=== PATIENT | male | born 1965 | race Caucasian/White ===

== ENCOUNTER 2019-06-24 17:37 | Emergency (ER) | payer MEDICAID, OTHER ==
[~2019-06-24] VITALS: Ht 172.7 cm; Wt 63.6 kg
[2019-06-24 17:58] LABS: BASOPHILS % (AUTO) 1 % (0-10); EOSINOPHILS # (AUTO) 0.1 10^3/uL (0.0-0.3); EOSINOPHILS % (AUTO) 2 % (0-10); HEMATOCRIT 43 % (40-54); HEMOGLOBIN 14.8 G/DL (13.3-17.7); LYMPHOCYTES # (AUTO) 0.9 X 10^3 (1.0-4.0); LYMPHOCYTES % (AUTO) 25 % (12-44); MEAN CORPUSCULAR HEMOGLOBIN 33 PG (25-34); MEAN CORPUSCULAR HGB CONC 35 G/DL (32-36); MEAN CORPUSCULAR VOLUME 95 FL (80-99); MEAN PLATELET VOLUME 8.3 FL (7.4-10.4); MONOCYTES # (AUTO) 0.6 X 10^3 (0.0-1.0); MONOCYTES % (AUTO) 15 % (0-12); NEUTROPHILS # (AUTO) 2.1 X 10^3 (1.8-7.8); NEUTROPHILS % (AUTO) 56 % (42-75); PLATELET COUNT 156 10^3/uL (130-400); RED CELL DISTRIBUTION WIDTH 11.8 % (10.0-14.5); WHITE BLOOD COUNT 3.7 10^3/uL (4.3-11.0)
[2019-06-24 18:18] LABS: ALANINE AMINOTRANSFERASE 88 U/L (0-55); ALBUMIN 4.5 GM/DL (3.2-4.5); ALKALINE PHOSPHATASE 48 U/L (40-136); BILIRUBIN,TOTAL 0.3 MG/DL (0.1-1.0); BUN/CREATININE RATIO 17; CALCIUM 9.2 MG/DL (8.5-10.1); CARBON DIOXIDE 23 MMOL/L (21-32); CHLORIDE 106 MMOL/L (98-107); CREATININE SERUM 0.82 MG/DL (0.60-1.30); GFR ESTIMATED > 60; GLUCOSE 85 MG/DL (70-105); POTASSIUM 3.8 MMOL/L (3.6-5.0); SODIUM 140 MMOL/L (135-145); TOTAL PROTEIN 7.5 GM/DL (6.4-8.2)
[2019-06-24] MEDS ORDERED: HOLD METFORMIN - RECEIVED CONTRAST 20 ML VIAL IV SCH (18:30)
[2019-06-24] MEDS ORDERED: NS 100 ML (IVPB) BAG IV ONE (18:30)
[2019-06-24] MEDS ORDERED: CATHETER FLUSH 10 ML SYR IV PRN (18:30)
[2019-06-24] MEDS ORDERED: IOHEXOL 350 MG/ML 100 ML (OMNIPAQUE 350) VIAL IV ONE (18:30)
--- NOTE | 2019-06-24 18:34 | ED Respiratory ---
General Chief Complaint: Respiratory Problems Stated Complaint: SOB Nursing Triage Note: AMB TO ROOM REPORTS FOR 1 WEEK HAS HAD CONGESTION WITH SOA. HAS HAD PMH OF CA OF THE VOCAL CORDS 2 YEARS AGO, . HAS HAD TRACH. Source: patient Exam Limitations: no limitations History of Present Illness Date Seen by Provider: Jun 24, 2019 Time Seen by Provider: 18:30 Initial Comments To ER with one week history of congestion and shortness of breath. History of some sort of throat cancer, he states it was of the vocal cords. Subsequently had a tracheostomy which is currently covered with a Band-Aid. Continues to smoke, has sensation that his cancer has returned. Timing/Duration: just prior to arrival Severity: moderate Modifying Factors: Improves With Coughing Associated Symptoms: cough Allergies and Home Medications Allergies Coded Allergies: morphine (Verified Allergy, Unknown, 06/24/19) Home Medications No Active Prescriptions or Reported Meds Patient Home Medication List Home Medication List Reviewed: Yes Review of Systems Review of Systems Constitutional: see HPI EENTM: see HPI Respiratory: see HPI, cough, short of breath Cardiovascular: no symptoms reported Genitourinary: no symptoms reported Musculoskeletal: no symptoms reported Skin: no symptoms reported Psychiatric/Neurological: No Symptoms Reported Hematologic/Lymphatic: No Symptoms Reported Past Cdlwclv-Mumzyn-Arwvtp Hx Patient Social History Alcohol Use: Occasionally Uses Recreational Drug Use: No Smoking Status: Current Someday Smoker Recent Foreign Travel: No Contact w/Someone Who Travel: No Recent Infectious Disease Expo: No Past Medical History Surgeries: Yes (FEEDING TUBE IN PAST. ) Gallbladder, Tracheostomy Respiratory: No Cardiac: No Neurological: No Genitourinary: No Musculoskeletal: No Endocrine: No HEENT: No Cancer: Yes (VOCAL CORD. ) Integumentary: No Physical Exam Vital Signs - First Documented 06/24/19 17:40 Temp 36.4 Pulse 107 Resp 18 B/P (MAP) 156/112 (127) Pulse Ox 97 O2 Delivery Room Air Capillary Refill : Less Than 3 Seconds Height: '" Weight: lbs. oz. kg; 21.00 BMI Method: General Appearance: WD/WN, no apparent distress Eyes: Bilateral Eye Normal Inspection, Bilateral Eye PERRL, Bilateral Eye EOMI HEENT: PERRL/EOMI, normal ENT inspection Neck: non-tender, full range of motion Respiratory: no respiratory distress, no accessory muscle use Gastrointestinal: normal bowel sounds, non tender, soft Extremities: normal range of motion, non-tender, normal inspection Neurologic/Psychiatric: alert, normal mood/affect, oriented x 3 Skin: normal color, warm/dry Progress/Results/Core Measures Suspected Sepsis Recent Fever Within 48 Hours: No Infection Criteria Present: Suspected New Infection New/Unexplained Altered Menta: No Sepsis Screen: No Definite Risk SIRS Temperature: Pulse: 107 Respiratory Rate: 18 Laboratory Tests 06/24/19 17:50: White Blood Count 3.7L Blood Pressure 156 /112 Mean: 127 Laboratory Tests 06/24/19 17:50: Creatinine 0.82, Platelet Count 156, Total Bilirubin 0.3 Results/Orders Lab Results Laboratory Tests Test 06/24/19 17:50 Range/Units White Blood Count 3.7 L 4.3-11.0 10^3/uL Red Blood Count 4.52 4.35-5.85 10^6/uL Hemoglobin 14.8 13.3-17.7 G/DL Hematocrit 43 40-54 % Mean Corpuscular Volume 95 80-99 FL Mean Corpuscular Hemoglobin 33 25-34 PG Mean Corpuscular Hemoglobin Concent 35 32-36 G/DL Red Cell Distribution Width 11.8 10.0-14.5 % Platelet Count 156 130-400 10^3/uL Mean Platelet Volume 8.3 7.4-10.4 FL Neutrophils (%) (Auto) 56 42-75 % Lymphocytes (%) (Auto) 25 12-44 % Monocytes (%) (Auto) 15 H 0-12 % Eosinophils (%) (Auto) 2 0-10 % Basophils (%) (Auto) 1 0-10 % Neutrophils # (Auto) 2.1 1.8-7.8 X 10^3 Lymphocytes # (Auto) 0.9 L 1.0-4.0 X 10^3 Monocytes # (Auto) 0.6 0.0-1.0 X 10^3 Eosinophils # (Auto) 0.1 0.0-0.3 10^3/uL Basophils # (Auto) 0.0 0.0-0.1 10^3/uL Sodium Level 140 135-145 MMOL/L Potassium Level 3.8 3.6-5.0 MMOL/L Chloride Level 106 98-107 MMOL/L Carbon Dioxide Level 23 21-32 MMOL/L Anion Gap 11 5-14 MMOL/L Blood Urea Nitrogen 14 7-18 MG/DL Creatinine 0.82 0.60-1.30 MG/DL Estimat Glomerular Filtration Rate > 60 BUN/Creatinine Ratio 17 Glucose Level 85 70-105 MG/DL Calcium Level 9.2 8.5-10.1 MG/DL Corrected Calcium 8.8 8.5-10.1 MG/DL Total Bilirubin 0.3 0.1-1.0 MG/DL Aspartate Amino Transf (AST/SGOT) 63 H 5-34 U/L Alanine Aminotransferase (ALT/SGPT) 88 H 0-55 U/L Alkaline Phosphatase 48 40-136 U/L B-Type Natriuretic Peptide 17.4 <100.0 PG/ML Total Protein 7.5 6.4-8.2 GM/DL Albumin 4.5 3.2-4.5 GM/DL Micro Results Microbiology 06/24/19 Influenza Types A,B Antigen (EMILY) - Final, Complete My Orders Orders - CELENA SPRINGER [employer] Influenza A And B Antigens (06/24/19 17:52) Chest Pa/Lat (2 View) (06/24/19 17:52) Cbc With Automated Diff (06/24/19 17:52) Comprehensive Metabolic Panel (06/24/19 17:52) BNP (06/24/19 17:52) Ed Iv/Invasive Line Start (06/24/19 17:52) Ct Neck (Soft Tissue) W (06/24/19 17:58) Iohexol Injection (Omnipaque 350 Mg/Ml 1 (06/24/19 18:30) Received Contrast (Hold Metformin- Contr (06/24/19 18:30) Sodium Chloride Flush (Catheter Flush Sy (06/24/19 18:30) Ns (Ivpb) (Sodium Chloride 0.9% Ivpb Bag (06/24/19 18:30) Medications Given in ED Current Medications Medications Dose Ordered Sig/Cristin Route Start Time Stop Time Status Last Admin Dose Admin Iohexol 100 ml ONCE ONCE IV 06/24/19 18:30 06/24/19 18:32 DC 06/24/19 18:30 75 ML Sodium Chloride 10 ml NEEDED PRN IV 06/24/19 18:30 06/24/19 18:30 10 ML Sodium Chloride 100 ml ONCE ONCE IV 06/24/19 18:30 06/24/19 18:32 DC 06/24/19 18:30 80 ML Vital Signs/I&O 06/24/19 17:40 Temp 36.4 Pulse 107 Resp 18 B/P (MAP) 156/112 (127) Pulse Ox 97 O2 Delivery Room Air Capillary Refill : Less Than 3 Seconds Blood Pressure Mean: 127 Diagnostic Imaging Plain Films/CT/US/NM/MRI: chest Comments NAME: [facility]UNC[facility] REC#: [id number] PT STATUS: REG ER : 1965 PHYSICIAN: CELENA SPRINGER [employer] ADMIT DATE: 06/24/19/ER Draft Date of Exam:06/24/19 CT NECK (SOFT TISSUE) W PROCEDURE: CT neck soft tissue with contrast. TECHNIQUE: Multiple contiguous axial images were obtained through the neck after the administration of contrast. Auto Exposure Controls were utilized during the CT exam to meet ALARA standards for radiation dose reduction. INDICATION: Cancer of the vocal cords, cough, and congestion There are no prior studies available for comparison. There is slight asymmetry of the soft tissues of the larynx but there is no clear evidence for a mass to suggest recurrent malignancy. There is no other mass or adenopathy identified within the neck. The thyroid gland, the submandibular glands and the parotid glands are generally unremarkable. The intracranial contents, where visualized, show no sign of an acute abnormality. The lung apices are clear. The bone windows are unremarkable for a fracture or for a destructive lesion. IMPRESSION: 1. There is slight asymmetry of the soft tissues of the larynx but there is no clear evidence for a mass. If clinical concern regarding an underlying abnormality persists, then direct visualization would be recommended. 2. There is no acute abnormality involving the neck otherwise. Dictated on workstation # [id number] Dict: 06/24/19 1849 Trans: 06/24/19 1857 SELMA [id number] Interpreted by: USMAN NASH MD Electronically signed by: Departure Impression Primary Impression: COPD exacerbation Disposition: HOME, SELF-CARE Condition: Improved Departure-Patient Inst. Decision time for Depature: 19:05 Referrals: GABY TOLLIVER MD NO,LOCAL PHYSICIAN (PCP) Primary Care Physician Patient Instructions: Exacerbation of COPD Add. Discharge Instructions: 1. Antibiotics and steroids as directed. Follow-up with Dr. Tolliver from ear nose and throat to discuss laryngoscopy and any further evaluation he deems necessary. All discharge instructions reviewed with patient and/or family. Voiced understanding. Scripts Amoxicillin (Amoxicillin) 500 Mg Capsule 500 MG PO TID, #21 CAP 0 Refills Prov: CELENA SPRINGER APRN 06/24/19 Prednisone (Prednisone) 20 Mg Tab 40 MG PO DAILY, #8 TAB 0 Refills Prov: CELENA SPRINGER APRN 06/24/19 CELENA SPRINGER APRN Jun 24, 2019 18:34
--- NOTE | 2019-06-24 18:45 | Diagnostic Imaging Report ---
INDICATION: Shortness of air, congestion for one week FINDINGS: Two views of the chest demonstrate the lungs to be clear. The heart size and vascularity are normal. There are no pleural effusions. IMPRESSION: Negative chest. Dictated by: Dictated on workstation # [id number]
--- NOTE | 2019-06-24 18:58 | Diagnostic Imaging Report ---
PROCEDURE: CT neck soft tissue with contrast. TECHNIQUE: Multiple contiguous axial images were obtained through the neck after the administration of contrast. Auto Exposure Controls were utilized during the CT exam to meet ALARA standards for radiation dose reduction. INDICATION: Cancer of the vocal cords, cough, and congestion There are no prior studies available for comparison. There is slight asymmetry of the soft tissues of the larynx but there is no clear evidence for a mass to suggest recurrent malignancy. There is no other mass or adenopathy identified within the neck. The thyroid gland, the submandibular glands and the parotid glands are generally unremarkable. The intracranial contents, where visualized, show no sign of an acute abnormality. The lung apices are clear. The bone windows are unremarkable for a fracture or for a destructive lesion. IMPRESSION: 1. There is slight asymmetry of the soft tissues of the larynx but there is no clear evidence for a mass. If clinical concern regarding an underlying abnormality persists, then direct visualization would be recommended. 2. There is no acute abnormality involving the neck otherwise. Dictated by: Dictated on workstation # [id number]
[2019-06-24] MEDS ORDERED: AMOX500C2 PO (19:06)
[2019-06-24] MEDS ORDERED: PRD20T PO (19:06)
[2019-06-24] MEDS ORDERED: methylPREDNISolone 125 MG (Solu-MEDROL) VIAL IVP ONE (19:15)
[2019-06-24] MEDS ORDERED: CEPHALEXIN 250 MG (KEFLEX) CAP PO ONE (19:15)
[2019-06-24 19:16] VITALS: BP 147/93
== END 2019-06-24 19:15 | disposition home or self-care (01) ==
LOC: ER 17:39
DX: J44.1 Chronic obstructive pulmonary disease with (acute) exacerbation (principal); F17.200 Nicotine dependence, unspecified, uncomplicated; Z88.5 Allergy status to narcotic agent; Z93.0 Tracheostomy status; Z85.818 Personal history of malignant neoplasm of other sites of lip, oral cavity, and pharynx
CPT/HCPCS: 36415; 70491; 71046; 80053; 83880; 85025; 87804; 96374